=== PATIENT | female | born 1980 | race Caucasian/White ===

== ENCOUNTER 2023-03-22 16:37 | Inpatient (IN) | payer BC, OTHER ==
[2023-03-22 18:02] VITALS: BMI 17.9
[2023-03-22] MEDS ORDERED: ONDANSETRON *ODT* 4 MG TABLET SL PRN (19:43)
[2023-03-22] MEDS ORDERED: NALOXONE HCL (KLOXXADO) 8 MG SPRAY NS PRN (19:43)
[2023-03-22] MEDS ORDERED: NALOXONE HCL 0.4 MG/ML VIAL IM PRN (19:43)
[2023-03-22] MEDS ORDERED: BENZOCAINE/MENTHOL (CHLORASEPTIC ) LOZENGE MM PRN (19:43)
[2023-03-22] MEDS ORDERED: POLYETHYLENE GLYCOL (HEALTHYLAX) 3350 17 GM PACKET PO PRN (19:43)
[2023-03-22] MEDS ORDERED: BISMUTH SUBSALICYLATE 524 MG/30 ML PO PRN (19:43)
[2023-03-22] MEDS ORDERED: LOPERAMIDE HCL 2 MG CAPSULE PO PRN (19:43)
[2023-03-22] MEDS ORDERED: IBUPROFEN 600 MG TABLET (FP) PO PRN (19:43)
[2023-03-22] MEDS ORDERED: DICYCLOMINE HCL 10 MG CAPSULE PO PRN (19:43)
[2023-03-22] MEDS ORDERED: ACETAMINOPHEN 325 MG TABLET (FP) PO PRN (19:43)
[2023-03-22] MEDS ORDERED: MAG HYDROX/AL HYDROX/SIMETH 30 ML UNIT-DOSE CUP PO PRN (19:43)
[2023-03-22] MEDS ORDERED: guaiFENesin 600 MG TABLET.ER (FP) PO PRN (19:43)
[2023-03-22] MEDS ORDERED: chlordiazePOXIDE HCL 25 MG CAPSULE PO PRN (19:43)
[2023-03-22] MEDS ORDERED: METHOCARBAMOL 500 MG TABLET PO PRN (19:43)
[2023-03-22] MEDS ORDERED: IBUPROFEN 400 MG TABLET (FP) PO PRN (19:43)
[2023-03-22] MEDS ORDERED: MAGNESIUM HYDROX 2400MG/30ML ORAL SUSPENSION 30 ML CUP PO PRN (19:43)
[2023-03-22] MEDS ORDERED: BENZONATATE 200 MG CAPSULE PO PRN (19:43)
[2023-03-22] MEDS ORDERED: hydrOXYzine PAMOATE 25 MG CAPSULE (FP) PO PRN (19:43)
[2023-03-22] MEDS ORDERED: ONDANSETRON *ODT* 4 MG TABLET ONE (20:32)
[2023-03-22] MEDS ORDERED: chlordiazePOXIDE HCL 25 MG CAPSULE ONE (20:32)
[2023-03-22] MEDS ORDERED: hydrOXYzine PAMOATE 25 MG CAPSULE (FP) PO ONE (20:32)
[2023-03-22] MEDS ORDERED: THIAMINE HCL 100 MG TABLET (FP) PO SCH (22:00)
[2023-03-22] MEDS ORDERED: MELATONIN 5 MG TABLETS PO SCH (22:00)
[2023-03-22] MEDS: chlordiazePOXIDE HCL 25 MG CAPSULE PO SCH (22:49)
[2023-03-23] MEDS: chlordiazePOXIDE HCL 25 MG CAPSULE PO SCH ×2 (05:34→10:29)
[2023-03-23 08:59] VITALS: BP 125/71; PULSE 107; RESP 20; TEMP 96.9
[2023-03-23] MEDS ORDERED: PRENATAL VITAMINS W/ FOLIC ACID TABLET (FP) PO SCH (10:00)
[2023-03-23 11:16] LABS: HEMATOCRIT 41.8 % (32.4-45.2); HEMOGLOBIN 13.8 GM/dL (10.7-15.3); MCH 30.1 pg (25.7-33.7); MCHC 33.1 g/dl (32.0-36.0); MEAN CELL VOLUME 90.8 fl (80-96); MEAN PLT VOLUME 8.1 fl (7.5-11.1); PLATELET COUNT 149 10^3/uL (134-434); RBC 4.61 M/mm3 (3.60-5.2); RDW 13.4 % (11.6-15.6); WHITE BLOOD COUNT 6.3 K/mm3 (4.0-10.0)
[2023-03-23 11:28] LABS: POTASSIUM 3.8 mmol/L (3.5-5.1)
[2023-03-23 11:42] LABS: BLOOD UREA NITROGEN 10.8 mg/dL (7-18)
[2023-03-23 11:43] LABS: ALBUMIN 3.6 g/dl (3.4-5.0)
[2023-03-23 11:45] LABS: CREATININE 0.8 mg/dL (0.55-1.3)
[2023-03-23 11:46] LABS: BILIRUBIN,TOTAL 1.3 mg/dL (0.2-1)
[2023-03-23 11:47] LABS: TOT PROT 6.7 g/dl (6.4-8.2)
[2023-03-24] MEDS ORDERED: chlordiazePOXIDE HCL 25 MG CAPSULE PO SCH (05:00)
[2023-03-25] MEDS ORDERED: chlordiazePOXIDE HCL 10 MG CAPSULE PO PRN
[2023-03-25] MEDS ORDERED: chlordiazePOXIDE HCL 10 MG CAPSULE PO SCH (05:00)
[2023-03-26] MEDS ORDERED: chlordiazePOXIDE HCL 10 MG CAPSULE PO SCH (05:00)
[2023-03-27] MEDS ORDERED: chlordiazePOXIDE HCL 10 MG CAPSULE PO ONE (05:00)
== END 2023-03-23 11:55 | disposition left against medical advice (07) | DRG 770 ==
LOC: YASAS 16:37 → Y6N 20:34
PROVIDERS: ADMIT Allergy & Immunology; ATTEND Surgery
PROC: HZ2ZZZZ Detoxification Services for Substance Abuse Treatment (ICD-10-PCS; principal; 2023-03-22)
DX: F10.230 Alcohol dependence with withdrawal, uncomplicated (principal); F25.0 Schizoaffective disorder, bipolar type; Z86.59 Personal history of other mental and behavioral disorders; Z88.0 Allergy status to penicillin; Z88.2 Allergy status to sulfonamides
CPT/HCPCS: 36415; 80053; 81025; 85027; 86780; 87635; 93005; 93010; Q0162

== ENCOUNTER 2023-08-02 16:13 | Inpatient (IN) | payer BC ==
[2023-08-02 18:08] VITALS: BMI 17.4
[2023-08-02] MEDS ORDERED: P-EPHED 60MG/TRIPROLIDI 2.5MG TABLET PO PRN (19:23)
[2023-08-02] MEDS ORDERED: MAGNESIUM HYDROX 2400MG/30ML ORAL SUSPENSION 30 ML CUP PO PRN (19:23)
[2023-08-02] MEDS ORDERED: IBUPROFEN 600 MG TABLET (FP) PO PRN (19:23)
[2023-08-02] MEDS ORDERED: guaiFENesin 600 MG TABLET.ER (FP) PO PRN (19:23)
[2023-08-02] MEDS ORDERED: POLYETHYLENE GLYCOL (HEALTHYLAX) 3350 17 GM PACKET PO PRN (19:23)
[2023-08-02] MEDS ORDERED: BISMUTH SUBSALICYLATE 524 MG/30 ML PO PRN (19:23)
[2023-08-02] MEDS ORDERED: IBUPROFEN 400 MG TABLET (FP) PO PRN (19:23)
[2023-08-02] MEDS ORDERED: LOPERAMIDE HCL 2 MG CAPSULE PO PRN (19:23)
[2023-08-02] MEDS ORDERED: MAG HYDROX/AL HYDROX/SIMETH 30 ML UNIT-DOSE CUP PO PRN (19:23)
[2023-08-02] MEDS ORDERED: BENZOCAINE/MENTHOL (CHLORASEPTIC ) LOZENGE MM PRN (19:23)
[2023-08-02] MEDS ORDERED: BENZONATATE 200 MG CAPSULE PO PRN (19:23)
[2023-08-02] MEDS ORDERED: ONDANSETRON *ODT* 4 MG TABLET SL PRN (19:23)
[2023-08-02] MEDS ORDERED: ACETAMINOPHEN 325 MG TABLET (FP) PO PRN (19:23)
[2023-08-02] MEDS ORDERED: DICYCLOMINE HCL 10 MG CAPSULE PO PRN (19:23)
[2023-08-02] MEDS ORDERED: chlordiazePOXIDE HCL 25 MG CAPSULE PO ONE (19:25)
[2023-08-02] MEDS ORDERED: chlordiazePOXIDE HCL 25 MG CAPSULE PO PRN (19:25)
[2023-08-02] MEDS ORDERED: chlordiazePOXIDE HCL 25 MG CAPSULE ONE (20:15)
[2023-08-02] MEDS: THIAMINE HCL 100 MG TABLET (FP) PO SCH (22:14)
[2023-08-02] MEDS: MELATONIN 5 MG TABLETS PO SCH (22:14)
[2023-08-02] MEDS: chlordiazePOXIDE HCL 25 MG CAPSULE PO SCH (22:15)
[2023-08-02] MEDS: METHOCARBAMOL 500 MG TABLET PO PRN (23:12)
[2023-08-02] MEDS: hydrOXYzine PAMOATE 25 MG CAPSULE (FP) PO PRN (23:12)
[2023-08-03] MEDS: chlordiazePOXIDE HCL 25 MG CAPSULE PO SCH ×4 (05:28→22:13)
[2023-08-03] MEDS: METHOCARBAMOL 500 MG TABLET PO PRN ×2 (05:28→17:39)
[2023-08-03] MEDS: PRENATAL VITAMINS W/ FOLIC ACID TABLET (FP) PO SCH (10:05)
[2023-08-03] MEDS: hydrOXYzine PAMOATE 25 MG CAPSULE (FP) PO PRN ×2 (10:08→22:12)
[2023-08-03 10:31] LABS: HEMATOCRIT 31.8 % (32.4-45.2); MCH 32.6 pg (25.7-33.7); MCHC 34.7 g/dl (32.0-36.0); MEAN CELL VOLUME 93.9 fl (80-96); MEAN PLT VOLUME 7.4 fl (7.5-11.1); PLATELET COUNT 181 10^3/uL (134-434); RBC 3.39 M/mm3 (3.60-5.2); RDW 13.9 % (11.6-15.6); WHITE BLOOD COUNT 5.6 K/mm3 (4.0-10.0)
[2023-08-03 10:41] LABS: CHLORIDE 103 mmol/L (98-107); POTASSIUM 3.5 mmol/L (3.5-5.1); SODIUM 137 mmol/L (136-145)
[2023-08-03 10:53] LABS: CALCIUM 8.6 mg/dL (8.5-10.1)
[2023-08-03 10:54] LABS: ALBUMIN 3.1 g/dl (3.4-5.0); ANION GAP 6 mmol/L (4-13); CO2 28 mmol/L (21-32); GLUCOSE,RANDOM 122 mg/dL (74-106)
[2023-08-03 10:56] LABS: SGOT/AST 15 U/L (15-37)
[2023-08-03 10:57] LABS: CREATININE 0.6 mg/dL (0.55-1.3); SGPT/ALT 20 U/L (13-61)
[2023-08-03 10:58] LABS: BILIRUBIN,TOTAL 0.5 mg/dL (0.2-1)
[2023-08-03 10:59] LABS: TOT PROT 6.1 g/dl (6.4-8.2)
[2023-08-03 11:00] LABS: ALK PHOS 69 U/L (45-117)
[2023-08-03] MEDS: cloNIDine HCL 0.1 MG TABLET PO PRN (17:38)
[2023-08-03] MEDS: THIAMINE HCL 100 MG TABLET (FP) PO SCH (22:12)
[2023-08-03] MEDS: QUEtiapine FUMARATE 100 MG TABLET (FP) PO SCH (22:12)
[2023-08-03] MEDS: MELATONIN 5 MG TABLETS PO SCH (22:12)
[2023-08-04] MEDS: chlordiazePOXIDE HCL 25 MG CAPSULE PO SCH ×4 (05:45→22:08)
[2023-08-04] MEDS: METHOCARBAMOL 500 MG TABLET PO PRN ×2 (05:49→12:47)
[2023-08-04] MEDS ORDERED: PATIENT'S OWN MEDICATION (NON-FORMULARY) (Hydroxyzine Hcl [Hydroxyzine Hcl] 25 MG Tablet) PO SCH (10:00)
[2023-08-04] MEDS: DEXTROAMPHETAMINE/AMPHETAMINE 10 MG CAP.ER.24H PO SCH (10:06)
[2023-08-04] MEDS: PRENATAL VITAMINS W/ FOLIC ACID TABLET (FP) PO SCH (10:06)
[2023-08-04] MEDS: hydrOXYzine PAMOATE 25 MG CAPSULE (FP) PO PRN ×2 (10:07→22:08)
[2023-08-04] MEDS ORDERED: FLU VACCINE (FLULAVAL) PF 60 MCG/0.5 ML SYRINGE 2023-2024 IM ONE (12:00)
[2023-08-04 17:06] LABS: URINE APPEARANCE CLEAR; URINE BILIRUBIN NEGATIVE (NEGATIVE); URINE COLOR YELLOW; URINE GLUCOSE (UA) NEGATIVE (NEGATIVE); URINE KETONE NEGATIVE (NEGATIVE); URINE LEUK ESTERASE NEGATIVE (NEGATIVE); URINE NITRITE NEGATIVE (NEGATIVE); URINE PROTEIN NEGATIVE (NEGATIVE); URINE UROBILINOGEN 0.2 mg/dL (0.2-1.0)
[2023-08-04] MEDS: MELATONIN 5 MG TABLETS PO SCH (22:07)
[2023-08-04] MEDS: QUEtiapine FUMARATE 100 MG TABLET (FP) PO SCH (22:07)
[2023-08-04] MEDS: THIAMINE HCL 100 MG TABLET (FP) PO SCH (22:07)
[2023-08-05] MEDS ORDERED: chlordiazePOXIDE HCL 10 MG CAPSULE PO PRN
[2023-08-05] MEDS: chlordiazePOXIDE HCL 10 MG CAPSULE PO SCH ×4 (05:24→22:15)
[2023-08-05] MEDS: METHOCARBAMOL 500 MG TABLET PO PRN ×3 (05:26→22:13)
[2023-08-05] MEDS: PRENATAL VITAMINS W/ FOLIC ACID TABLET (FP) PO SCH (10:06)
[2023-08-05] MEDS: DEXTROAMPHETAMINE/AMPHETAMINE 10 MG CAP.ER.24H PO SCH (10:06)
[2023-08-05] MEDS: cloNIDine HCL 0.1 MG TABLET PO PRN ×2 (10:06→17:01)
[2023-08-05] MEDS: LORATADINE 10 MG TABLET PO SCH (16:12)
[2023-08-05] MEDS: QUEtiapine FUMARATE 100 MG TABLET (FP) PO SCH (22:13)
[2023-08-05] MEDS: MELATONIN 5 MG TABLETS PO SCH (22:13)
[2023-08-05] MEDS: THIAMINE HCL 100 MG TABLET (FP) PO SCH (22:13)
[2023-08-06] MEDS ORDERED: chlordiazePOXIDE HCL 10 MG CAPSULE PO SCH (05:00)
[2023-08-06] MEDS: METHOCARBAMOL 500 MG TABLET PO PRN ×2 (05:53→12:24)
[2023-08-06] MEDS: PRENATAL VITAMINS W/ FOLIC ACID TABLET (FP) PO SCH (09:09)
[2023-08-06] MEDS: DEXTROAMPHETAMINE/AMPHETAMINE 10 MG CAP.ER.24H PO SCH (09:09)
[2023-08-06] MEDS: LORATADINE 10 MG TABLET PO SCH (09:09)
[2023-08-06] MEDS: hydrOXYzine PAMOATE 25 MG CAPSULE (FP) PO PRN (09:10)
[2023-08-06 12:58] VITALS: BP 103/66; PULSE 82; RESP 18; TEMP 98.2
[2023-08-07] MEDS ORDERED: chlordiazePOXIDE HCL 10 MG CAPSULE PO ONE (05:00)
== END 2023-08-06 15:20 | disposition home or self-care (01) | DRG 775 ==
LOC: YASAS 16:13 → Y3N 20:42
PROVIDERS: ADMIT Allergy & Immunology; ATTEND Surgery
PROC: HZ2ZZZZ Detoxification Services for Substance Abuse Treatment (ICD-10-PCS; principal; 2023-08-02)
DX: F10.230 Alcohol dependence with withdrawal, uncomplicated (principal); F41.9 Anxiety disorder, unspecified; F32.A Depression, unspecified; F90.9 Attention-deficit hyperactivity disorder, unspecified type; Z91.410 Personal history of adult physical and sexual abuse; Z88.0 Allergy status to penicillin; Z88.2 Allergy status to sulfonamides
CPT/HCPCS: 36415; 80053; 80307; 81003; 81025; 85027; 86780; 87086; 87186; 87635; 90686; 93005; 93010; G0008